=== PATIENT | female | born 1965 | race Caucasian/White ===

== ENCOUNTER 2021-10-16 16:16 | Inpatient (IN) ==
[2021-10-16 16:39] LABS: BASOPHILS % (AUTO) 0.1 % (0.0-3.0); HEMATOCRIT 42.8 % (37.0-47.0); HEMOGLOBIN 13.8 g/dl (12.0-16.0); IMMATURE GRANULOCYTE # (AUTO) 0.1 (0.0-1.0); IMMATURE GRANULOCYTE % (AUTO) 0.9 % (0.0-5.0); LYMPHOCYTES # (AUTO) 1.9 K/uL (0.60-3.4); LYMPHOCYTES % (AUTO) 14.2 (10.0-50.0); MEAN CORPUSCULAR HEMOGLOBIN 28.6 pg (27.0-31.0); MEAN CORPUSCULAR HGB CONC 32.2 (31.8-35.4); MEAN CORPUSCULAR VOLUME 88.6 fl (81.0-99.0); MONOCYTES # (AUTO) 0.7 K/uL (0.4-2.0); MONOCYTES % (AUTO) 5.4 (0-10); NEUTROPHILS # (AUTO) 10.6 K/ul (2.0-6.9); NEUTROPHILS % (AUTO) 79.4 % (42.2-75.2); PLATELET COUNT 302 10^3/uL (140-440); RDW COEFFICIENT OF VARIATION 14.3 % (11.6-14.8); RED BLOOD COUNT 4.83 10^6/ul (4.20-5.40); WHITE BLOOD COUNT 13.41 K/ul (4.6-10.2)
[2021-10-16 16:43] LABS: ABG O2 HGB 79.9 % (95-100); ABG PH 7.46 (7.35-7.45); BEecf 1.8 (-2.0-3.0); COHb 1.8 (0.5-1.5); HCO3 25.6 (21-28); TCO2 26.7 (19-24); sO2 81.6 % (94-98); tHb 13.5 g/dl (11.7-17.4)
[2021-10-16 16:53] LABS: ALBUMIN 4.49 g/dL (3.5-5.0); ALKALINE PHOSPHATASE 91.7 U/L (38-126); ASPARTATE AMINO TRANSFERASE 147.3 U/L (14-36); BILIRUBIN,TOTAL 0.93 mg/dL (0.2-1.3); BLOOD UREA NITROGEN 15.5 mg/dL (7-17); CALCIUM 9.56 mg/dL (8.4-10.2); CARBON DIOXIDE 27.9 mmol/L (22-30.0); CHLORIDE 96.5 mmol/L (98-107); CREATINE KINASE 1326.1 U/L (30-135); CREATININE 0.76 mg/dL (0.60-1.30); GLUCOSE 241.4 mg/dL (74-106); POTASSIUM 3.37 mmol/L (3.5-5.1); SODIUM 137.1 mmol/L (134.5-145); TOTAL PROTEIN 8.77 g/dL (6.3-8.2)
[2021-10-16 16:58] LABS: PARTIAL THROMBOPLASTIN TIME 24.7 SEC (23.9-40.0); PROTHROMBIN TIME 10.7 SEC (9.3-11.0)
[2021-10-16 16:59] LABS: ALANINE AMINOTRANSFERASE 68.1 U/L (0-35)
[2021-10-16 17:04] LABS: TROPONIN I < 0.012 ng/ml (0.0000-0.120)
[2021-10-16] MEDS ORDERED: SOLU-MEDROL 125 MG IVP ONE (17:06)
[2021-10-16] MEDS ORDERED: ROCEPHIN 1 GM/50 ML D5W 1 GM/50 ML BAG IV STA (17:13)
[2021-10-16] MEDS ORDERED: DUONEB NEB STA (17:18)
[2021-10-16 17:22] LABS: ERYTHROCYTE SEDIMENTATION RATE 68 mm/hr (0-20)
--- NOTE | 2021-10-16 17:23 | DI ---
EXAM: Single view of the chest. History: Short of breath Findings: Heart is enlarged. Bilateral lung infiltrates. No appreciable pleural fluid and no pneum othorax. No acute osseous abnormalities. Severe scoliosis. Impression: Cardiomegaly with bilateral lung infiltrates could represent pulmonary edema and/or pneu monia
[2021-10-16] MEDS ORDERED: LASIX IVP ONE (17:25)
[2021-10-16] MEDS ORDERED: URO-JET MUCOUSMEMB STA (17:28)
[2021-10-16 18:01] LABS: RSV MOLECULAR NEGATIVE BY NAAT (NEGATIVE)
[2021-10-16] MEDS ORDERED: VANCOMYCIN 1 GM in SODIUM CHLORIDE 250 ML IV ONE (18:08)
[2021-10-16 18:33] LABS: ABG O2 HGB 92.7 % (95-100); BEecf 7.3 (-2.0-3.0); COHb 1.6 (0.5-1.5); HCO3 29.7 (21-28); MetHb 1.5 (0-1.5); TCO2 30.7 (19-24); sO2 94.3 % (94-98); tHb 13.4 g/dl (11.7-17.4)
[2021-10-16 18:36] LABS: ABG PH 7.55 (7.35-7.45)
[2021-10-16] MEDS ORDERED: ATIVAN IVP ONE (18:57)
--- NOTE | 2021-10-16 18:57 | ED.PDOC ---
General ED Provider: Dr. EDD TANNER Chief Complaint: Respiratory Complaint Stated Complaint: severe SOB and chest congestion; onset for past 5 days ; states dx with COVID 9days to 2 weeks At [facility], [place], [facility]ated [facility]. did not receive tx Time Seen by Provider: 10/16/21 16:27 Mode of Arrival: Walk-In Information Source: Patient Exam Limitations: No limitations Primary Care Provider: MULU WEST MD Nursing and Triage Documentation Reviewed and Agree: Yes Does patient meet sepsis criteria?: No System Inflammatory Response Syndrome: Resp >20/Minute Sepsis Protocol: For patient's 13 years and over: Temp is 96.8 and below OR 101 and greater Pulse >90 BPM Resp >20/minute Acutely Altered Mental Status Are patient's symptoms suggestive of a new infection, such as: -Pneumonia -Skin, Soft Tissue -Endocarditis -UTI -Bone, Joint Infection -Implantable Device -Acute Abdominal Infection -Wound Infection -Meningitis -Blood Stream Catheter Infection -Unknown Respiratory Complaint Exam Shortness of Air Complaint/Exam Onset/Duration: 3-4 days Symptoms Are: Worse Timing: Constant Initial Severity: Mild Current Severity: Severe Character: Reports Dyspnea at rest, Dyspnea on exertion and Orthopnea Aggravating: Reports Movement and Deep breaths Alleviating: Reports None Associated Signs and Symptoms: Reports Cough, Wheezing and Nasal congestion Related History: Reports Similar episode History of Healthcare-Acquired Pneumonia: No Cardiac Risk Factors: Reports None Pseudomonas Risk Factors: Reports None Tuberculosis Risk Factors: Reports None Home Oxygen Use: No Recent Stress Test: No Recent Echo/LV Function: No Respiratory Distress: Moderate Stridor Present: No Tracheal Deviation: No Subcutaneous Emphysema: No Accessory Muscle Use: Yes Diminished Breath Sounds: Yes Unable to Speak Full Sentences: Yes Fatigue: Yes Leg Swelling: No Frankie's Sign Present: No Grunting Respirations: No Kussmaul Respirations: No Differential Diagnoses: Airway Obstruction, Pulmonary Edema, COPD Exacerbation, Pneumonia, Pulmonary Embolism and Other (SARS) Quality Indicators For Pneumonia/CAP: Blood Cultures-SCU admit, Antibiotics in 6hr-admit, SpO2 assessed, Vital signs and Mental status assessed Related Surgical History: Reports None Review of Systems Review Of Systems Constitutional: Reports Malaise and Weakness Eyes: Reports No symptoms Ears, Nose, Mouth, Throat: Reports No symptoms Respiratory: Reports Cough, Short of air and Wheezing Cardiac: Reports No symptoms GI: Reports No symptoms : Reports No symptoms Musculoskeletal: Reports No symptoms Skin: Reports No symptoms Neurological: Reports Anxiety Endocrine: Reports No symptoms All Other Systems: Reviewed and Negative [facility] Medical History Arthritis Asthma Chronic obstructive pulmonary disease Diabetes mellitus Elevated cholesterol Gastroesophageal reflux disease Heart disease Family History (Updated 10/16/21 @ 21:06 by JACKIE RAMÍREZ RN) Mother Diabetes Hypertension Cancer Social History Smoking and tobacco status: Former smoker Tobacco: How many years used: 30 Second hand smoke exposure: No Smoking risk assessment performed: No Alcohol intake: never Counseling given: No Counseling provided: none Substance use type: does not use Counseling given: No Counseling provided: none Lizz/bahai: OTHER Special lizz needs: No Agree to transfusion: Yes Adopted: No Foster care: No Household members: children Housing: house Marital status: D Lives independently: No Daycare: no daycare Number of children: 3 Number of grandchildren: 10 Highest education level completed: 8th grade Financial difficulty paying for basics: hard service: No retirement: No Current occupational status: employed Current occupational exposures/hazards: No Do you think of yourself as: straight/heterosexual Current gender identity: male and female Seatbelt use: always Drives intoxicated or rides with intoxicated hazardous materials driver: No Surgical History History of tubal ligation Physical Exam Physical Exam Appearance: Reports Ill-appearing and Obese Ill-appearing: Moderate Pain Distress: Mild Eyes: Reports DANA, EOMI, Conjunctiva clear, Right pupil size and Left pupil size ENT: Reports Ears normal and Oropharynx normal Neck: Supple Respiratory: Reports Airway patent, Breath sounds diminished and Wheezes Cardiovascular: Reports RRR, Pulses normal and No murmur GI/: Reports Soft, Nontender, No masses, Bowel sounds normal and No Organomegaly Musculoskeletal: Reports Normal strength, ROM intact and No edema Skin: Reports Warm and Dry Neurological: Reports Sensation intact, Motor intact, Reflexes intact, Cranial nerves intact, Alert and Oriented Psychiatric: Reports Affect appropriate and Anxious Physician Notification Case Discussed Physician Notified: Sonia -accepts pt Time of Notification: 19:00 Physician Notified: Dr West-PCP Time of Notification: 18:00 Comments: Discussed patient and proposed treatment. Out on vacation now. Back in service end of week, Will particpate in care. Concurs with treatment plan Critical Care Note Critical Care Note Total Critical Care Time (mins): 30 Course Course Hematology/Chemistry: 10/17/21 04:52 10/17/21 04:52 Orders, Labs, Meds: Lab Review 10/16/21 10/16/21 10/16/21 16:35 16:36 16:36 WBC 13.41 H RBC 4.83 Hgb 13.8 Hct 42.8 MCV 88.6 MCH 28.6 MCHC 32.2 RDW Coeff of Barbara 14.3 Plt Count 302 Immature Gran % (Auto) 0.9 Neut % (Auto) 79.4 H Lymph % (Auto) 14.2 [place] % (Auto) 5.4 Eos % (Auto) 0.0 Baso % (Auto) 0.1 Neut # (Auto) 10.6 H Lymph # (Auto) 1.9 [place] # (Auto) 0.7 Eos # (Auto) 0.0 Baso # (Auto) 0.0 Immature Gran # (Auto) 0.1 ESR PT INR APTT Puncture Site Rrad Base Excess 1.8 O2 Saturation 81.6 L ABG pH 7.46 H ABG pCO2 36.0 ABG pO2 43.0 L* ABG HCO3 25.6 ABG Total CO2 26.7 H Jamar Test Os Hemoglobin 1.0 Oxyhemoglobin 79.9 L Carboxyhemoglobin 1.8 H Total Hemoglobin 13.5 O2 Delivery Device Non rebreather Oxygen Liter Flow 15.00 FiO2 % 100.0 Sodium 137.1 Potassium 3.37 L Chloride 96.5 L Carbon Dioxide 27.9 Anion Gap 16.07 BUN 15.5 Creatinine 0.76 Estimated GFR (MDRD) 79.00 BUN/Creatinine Ratio 20.39 Glucose 241.4 H Lactic Acid Calcium 9.56 Magnesium 2.50 H Ferritin Total Bilirubin 0.93 AST 147.3 H ALT 68.1 H Alkaline Phosphatase 91.7 Total Creatine Kinase 1326.1 H CK-MB (CK-2) 2.810 H CK-MB (CK-2) % 0.2100 Troponin I < 0.012 NT-Pro-B Natriuret Pep Total Protein 8.77 H Albumin 4.49 Globulin 4.28 Albumin/Globulin Ratio 1.04 Procalcitonin D-Dimer RSV Antigen 10/16/21 10/16/21 10/16/21 16:36 16:36 16:36 WBC RBC Hgb Hct MCV MCH MCHC RDW Coeff of Barbara Plt Count Immature Gran % (Auto) Neut % (Auto) Lymph % (Auto) [place] % (Auto) Eos % (Auto) Baso % (Auto) Neut # (Auto) Lymph # (Auto) [place] # (Auto) Eos # (Auto) Baso # (Auto) Immature Gran # (Auto) ESR 68 H PT 10.7 INR 1.03 APTT 24.7 Puncture Site Base Excess O2 Saturation ABG pH ABG pCO2 ABG pO2 ABG HCO3 ABG Total CO2 Jamar Test Hemoglobin Oxyhemoglobin Carboxyhemoglobin Total Hemoglobin O2 Delivery Device Oxygen Liter Flow FiO2 % Sodium Potassium Chloride Carbon Dioxide Anion Gap BUN Creatinine Estimated GFR (MDRD) BUN/Creatinine Ratio Glucose Lactic Acid Calcium Magnesium Ferritin Total Bilirubin AST ALT Alkaline Phosphatase Total Creatine Kinase CK-MB (CK-2) CK-MB (CK-2) % Troponin I NT-Pro-B Natriuret Pep Total Protein Albumin Globulin Albumin/Globulin Ratio Procalcitonin D-Dimer 2150.52 H RSV Antigen 10/16/21 10/16/21 10/16/21 16:36 16:36 16:36 WBC RBC Hgb Hct MCV MCH MCHC RDW Coeff of Barbara Plt Count Immature Gran % (Auto) Neut % (Auto) Lymph % (Auto) [place] % (Auto) Eos % (Auto) Baso % (Auto) Neut # (Auto) Lymph # (Auto) [place] # (Auto) Eos # (Auto) Baso # (Auto) Immature Gran # (Auto) ESR PT INR APTT Puncture Site Base Excess O2 Saturation ABG pH ABG pCO2 ABG pO2 ABG HCO3 ABG Total CO2 Jamar Test Hemoglobin Oxyhemoglobin Carboxyhemoglobin Total Hemoglobin O2 Delivery Device Oxygen Liter Flow FiO2 % Sodium Potassium Chloride Carbon Dioxide Anion Gap BUN Creatinine Estimated GFR (MDRD) BUN/Creatinine Ratio Glucose Lactic Acid 2.78 H Calcium Magnesium Ferritin Total Bilirubin AST ALT Alkaline Phosphatase Total Creatine Kinase CK-MB (CK-2) CK-MB (CK-2) % Troponin I NT-Pro-B Natriuret Pep 155.000 H Total Protein Albumin Globulin Albumin/Globulin Ratio Procalcitonin 0.21 H D-Dimer RSV Antigen 10/16/21 10/16/21 10/16/21 16:36 16:36 17:40 WBC RBC Hgb Hct MCV MCH MCHC RDW Coeff of Barbara Plt Count Immature Gran % (Auto) Neut % (Auto) Lymph % (Auto) [place] % (Auto) Eos % (Auto) Baso % (Auto) Neut # (Auto) Lymph # (Auto) [place] # (Auto) Eos # (Auto) Baso # (Auto) Immature Gran # (Auto) ESR PT INR APTT Puncture Site Base Excess O2 Saturation ABG pH ABG pCO2 ABG pO2 ABG HCO3 ABG Total CO2 Jamar Test Hemoglobin Oxyhemoglobin Carboxyhemoglobin Total Hemoglobin O2 Delivery Device Oxygen Liter Flow FiO2 % Sodium Potassium Chloride Carbon Dioxide Anion Gap BUN Creatinine Estimated GFR (MDRD) BUN/Creatinine Ratio Glucose Lactic Acid Calcium Magnesium Ferritin 1100.00 H Total Bilirubin AST ALT Alkaline Phosphatase Total Creatine Kinase CK-MB (CK-2) CK-MB (CK-2) % Troponin I NT-Pro-B Natriuret Pep Total Protein Albumin Globulin Albumin/Globulin Ratio Procalcitonin D-Dimer 2063.12 H RSV Antigen Negative by naat 10/16/21 18:25 WBC RBC Hgb Hct MCV MCH MCHC RDW Coeff of Barbara Plt Count Immature Gran % (Auto) Neut % (Auto) Lymph % (Auto) [place] % (Auto) Eos % (Auto) Baso % (Auto) Neut # (Auto) Lymph # (Auto) [place] # (Auto) Eos # (Auto) Baso # (Auto) Immature Gran # (Auto) ESR PT INR APTT Puncture Site Rrad Base Excess 7.3 H O2 Saturation 94.3 ABG pH 7.55 H* ABG pCO2 34.0 L ABG pO2 62.0 L ABG HCO3 29.7 H ABG Total CO2 30.7 H Jamar Test Pos Hemoglobin 1.5 Oxyhemoglobin 92.7 L Carboxyhemoglobin 1.6 H Total Hemoglobin 13.4 O2 Delivery Device Bipap Oxygen Liter Flow FiO2 % 100.0 Sodium Potassium Chloride Carbon Dioxide Anion Gap BUN Creatinine Estimated GFR (MDRD) BUN/Creatinine Ratio Glucose Lactic Acid Calcium Magnesium Ferritin Total Bilirubin AST ALT Alkaline Phosphatase Total Creatine Kinase CK-MB (CK-2) CK-MB (CK-2) % Troponin I NT-Pro-B Natriuret Pep Total Protein Albumin Globulin Albumin/Globulin Ratio Procalcitonin D-Dimer RSV Antigen Orders Category Date Time Status ADMIT PATIENT INPATIENT .TO SCU (MONITORED BED) ADMISSION 10/16/21 19:36 Active ABG DRAW REQUEST DAILY@0600 CARDIO 10/17/21 06:00 Completed ABG DRAW REQUEST DAILY@0600 CARDIO 10/18/21 06:00 Ordered ABG DRAW REQUEST DAILY@0600 CARDIO 10/19/21 06:00 Ordered ABG DRAW REQUEST DAILY@0600 CARDIO 10/20/21 06:00 Ordered ABG DRAW REQUEST Stat CARDIO 10/16/21 16:27 Completed ABG DRAW REQUEST Stat CARDIO 10/16/21 18:17 Completed BIPAP Routine CARDIO 10/16/21 18:01 Active EKG-(ED ONLY) Stat CARDIO 10/16/21 16:28 Completed INCENTIVE SPIROMETRY Routine CARDIO 10/16/21 19:39 Active NEBULIZER TREATMENT Routine CARDIO 10/16/21 19:42 Active OXYGEN Routine CARDIO 10/16/21 16:28 Active ACTIVITY .BR with BRP CARE 10/16/21 19:41 Active BLOOD GLUCOSE MONITORING (MED/SURG) 0630,1100,1700,2100 CARE 10/16/21 19:42 Active CATHETER INSERTION AND CARE Q8HR CARE 10/16/21 19:41 Active CONTINUOUS PULSE OX (NURSING) PULSEOX CARE 10/16/21 19:39 Active INTAKE & OUTPUT Q8HR CARE 10/16/21 19:41 Active REMINDER: Ask MD to d/c evangelista DAILY CARE 10/16/21 19:42 Active TELEMETRY MONITORING TELE CARE 10/16/21 19:37 Active TELEMETRY MONITORING TELE CARE 10/16/21 19:39 Completed VITAL SIGNS Q4HR CARE 10/16/21 19:41 Active Evangelista [ED CATHETER INSERTION AND CARE] .ONCE EMERGENCY 10/16/21 17:28 Active IV [ED IV/MEDIPORT/POWERPORT] .ONCE EMERGENCY 10/16/21 17:11 Active ABG COOX DAILY@0600 LAB 10/17/21 04:25 Completed ABG COOX DAILY@0600 LAB 10/18/21 06:00 Ordered ABG COOX DAILY@0600 LAB 10/19/21 06:00 Ordered ABG COOX DAILY@0600 LAB 10/20/21 06:00 Ordered ABG COOX Stat LAB 10/16/21 16:35 Completed ABG COOX Stat LAB 10/16/21 18:25 Completed BLOOD CULTURE (ED ONLY) Stat LAB 10/16/21 16:36 Received BNP [NT-PROBNP] Stat LAB 10/16/21 16:36 Completed CBC W/ AUTO DIFF Stat LAB 10/16/21 16:36 Completed CMP [COMPREHENSIVE METABOLIC PANEL] Stat LAB 10/16/21 16:36 Completed CREATINE KINASE Stat LAB 10/16/21 16:36 Completed D-DIMER Routine LAB 10/16/21 16:36 Completed D-DIMER Stat LAB 10/16/21 16:36 Completed ESR Stat LAB 10/16/21 16:36 Completed FERRITIN Routine LAB 10/16/21 16:36 Completed LACTIC ACID Stat LAB 10/16/21 16:36 Completed MAGNESIUM Stat LAB 10/16/21 16:36 Completed PARTIAL THROMBOPLASTIN TIME Stat LAB 10/16/21 16:36 Completed PROCALCITONIN Stat LAB 10/16/21 16:36 Completed PT WITH INR Stat LAB 10/16/21 16:36 Completed RAPID STREP SCREEN [MOLECULAR GROUP A STREP] Stat LAB 10/16/21 17:40 Completed RSV Stat LAB 10/16/21 17:40 Completed TROPONIN I DAILY@0600 LAB 10/18/21 06:00 Ordered TROPONIN I Stat LAB 10/16/21 16:36 Completed 0.9 % Sodium Chloride [Saline Flush] MEDS 10/16/21 17:11 Active 1 syr IVF PRN PRN Acetaminophen [Tylenol] MEDS 10/16/21 19:41 Active 650 mg PO Q4H PRN Ceftriaxone/D5w 1 gm Premix [Rocephin 1 gm/50 ml D5w] MEDS 10/17/21 09:00 Active 1 gm in 50 ml IV DAILY Ceftriaxone/D5w 1 gm Premix [Rocephin 1 gm/50 ml D5w] MEDS 10/16/21 17:13 Discontinued 1 gm in 50 ml IV ONCE Enoxaparin Sodium [Lovenox] MEDS 10/17/21 09:00 Active 40 mg SUBCUT DAILY Furosemide [Lasix] MEDS 10/16/21 17:25 Discontinued 40 mg IVP ONCE ONE Ipratropium/Albuterol Neb [Duoneb] MEDS 10/16/21 17:18 Discontinued 3 ml NEB ONCE STA Ipratropium/Albuterol Neb [Duoneb] MEDS 10/16/21 20:00 Active 3 ml NEB RTQID Lorazepam [Ativan] MEDS 10/16/21 18:57 Discontinued 0.5 mg IVP ONCE ONE Methylprednisolone Sod Succ/Pf [Solu-Medrol 125 mg] MEDS 10/16/21 17:06 Discontinued 125 mg IVP ONCE ONE Methylprednisolone Sod Succ/Pf [Solu-Medrol 125 mg] MEDS 10/16/21 21:00 Active 125 mg IVP Q8HR Potassium Chloride in 0.9%NaCl [Sodium Chloride 0.9%- MEDS 10/16/21 20:00 Active KCl 20 Meq] 1,000 ml IV 70 mls/hr Vancomycin 1 gm MEDS 10/16/21 18:08 Discontinued 0.9 % Sodium Chloride [Sodium Chloride] 250 ml IV ONCE Vancomycin 1 gm MEDS 10/17/21 09:00 Active 0.9 % Sodium Chloride [Sodium Chloride] 250 ml IV Q12HR RESUSCITATION STATUS Routine OTHERS 10/16/21 19:41 Ordered CHEST, 1V AP ONLY Routine RADS 10/17/21 07:00 Completed CHEST, 1V AP ONLY Stat RADS 10/16/21 16:28 Completed Medications Generic Name Dose Route Start Last Admin Trade Name Freq PRN Reason Stop Dose Admin Acetaminophen 650 mg 10/16/21 19:41 Acetaminophen 325 Mg Tablet PO Q4H PRN Severe Pain Albuterol/Ipratropium 3 ml 10/16/21 20:00 10/17/21 10:05 Ipratropium/Albuterol Vial.Neb NEB 3 ml RTQID SVITLANA Administration Amitriptyline HCl 25 mg 10/16/21 21:30 10/16/21 23:52 Amitriptyline Hcl 25 Mg Tablet PO Not Given BEDTIME SVITLANA Atorvastatin Calcium 20 mg 10/16/21 21:30 10/16/21 23:53 Atorvastatin Calcium 20 Mg Tablet PO Not Given BEDTIME SVITLANA Budesonide/Formoterol Fumarate 2 puff 10/17/21 06:00 10/17/21 05:30 Budesonide/Formoterol Fumarate 80/4.5 Mcg Hfa.Aer.Ad IH 2 puff RTBID SVITLANA Administration Citalopram Hydrobromide 20 mg 10/16/21 21:30 10/17/21 09:36 Citalopram Hydrobromide 20 Mg Tablet PO 20 mg DAILY SVITLANA Administration Enoxaparin Sodium 40 mg 10/17/21 09:00 10/17/21 09:38 Enoxaparin Sodium 40 Mg/0.4 Ml Syr SUBCUT 40 mg DAILY SVITLANA Administration Fenofibrate 160 mg 10/16/21 21:30 10/16/21 23:53 Fenofibrate 160 Mg Tablet PO Not Given BEDTIME SVITLANA Gabapentin 600 mg 10/17/21 09:00 10/17/21 09:36 Gabapentin 300 Mg Capsule PO 600 mg TID SVITLANA Administration Potassium Chloride/Sodium Chloride 1,000 mls @ 70 mls/hr 10/16/21 20:00 10/17/21 10:28 Sodium Chloride 0.9%-Kcl 20 Meq IV 70 mls/hr .[id number] SVITLANA Administration CEFTRIAXONE/D5W 1 GM PREMIX 1 gm in 50 mls @ 75 mls/hr 10/17/21 09:00 10/17/21 09:36 Rocephin 1 Gm/50 Ml D5w IV 10/20/21 08:59 75 mls/hr DAILY SVITLANA Administration Vancomycin HCl 1 gm/ Sodium 250 mls @ 125 mls/hr 10/17/21 09:00 10/17/21 10:30 Chloride IV 10/20/21 08:59 125 mls/hr Q12HR SVITLANA Administration REMDESIVIR SOLUTION 100 mg/ 270 mls @ 270 mls/hr 10/18/21 12:00 Sodium Chloride IV 10/21/21 15:00 DAILY@1200 SVITLANA REMDESIVIR SOLUTION 200 mg/ 290 mls @ 145 mls/hr 10/17/21 12:00 Sodium Chloride IV 10/17/21 13:59 ONCE ONE Insulin Human Regular 0 unit 10/17/21 06:33 Insulin Regular, Human 100 Unit/Ml (3ml) Vial SUBCUT PRN PRN Hyperglycemia Protocol Levothyroxine Sodium 50 mcg 10/17/21 21:00 Levothyroxine Sodium 50 Mcg Tablet PO 10/17/21 21:01 ONCE ONE Metformin HCl 1,000 mg 10/17/21 06:30 10/17/21 05:35 Metformin Hcl 500 Mg Tablet PO Not Given BIDAC SVITLANA Methylprednisolone Sodium Succinate 125 mg 10/16/21 21:00 10/17/21 05:26 Methylprednisolone Sod Succ/Pf 125 Mg/2 Ml Vial IVP 125 mg Q8HR SVITLANA Administration Sodium Chloride 1 syr 10/16/21 17:11 0.9% Sodium Chloride 10 Ml Disp.Syrin IVF PRN PRN To flush IV Tizanidine HCl 4 mg 10/16/21 21:24 Tizanidine Hcl 4 Mg Tablet PO TID PRN Spasms Discontinued Medications Generic Name Dose Route Start Last Admin Trade Name Jasbirq PRN Reason Stop Dose Admin Albuterol/Ipratropium 3 ml 10/16/21 17:18 10/16/21 17:41 Ipratropium/Albuterol Vial.Neb NEB 10/16/21 17:19 3 ml ONCE STA Administration Furosemide 40 mg 10/16/21 17:25 10/16/21 17:30 Furosemide Inj 40 Mg/4 Ml Vial IVP 10/16/21 17:26 40 mg ONCE ONE Administration CEFTRIAXONE/D5W 1 GM PREMIX 1 gm in 50 mls @ 75 mls/hr 10/16/21 17:13 10/16/21 17:30 Rocephin 1 Gm/50 Ml D5w IV 10/16/21 17:52 75 mls/hr ONCE STA Administration Vancomycin HCl 1 gm/ Sodium 250 mls @ 250 mls/hr 10/16/21 18:08 10/16/21 18:38 Chloride IV 10/16/21 19:07 250 mls/hr ONCE ONE Administration REMDESIVIR SOLUTION 200 mg/ 290 mls @ 145 mls/hr 10/16/21 19:57 10/16/21 21:46 Sodium Chloride IV 10/16/21 21:56 Not Given ONCE ONE REMDESIVIR SOLUTION 200 mg/ 290 mls @ 145 mls/hr 10/17/21 09:00 Sodium Chloride IV 10/17/21 10:59 ONCE ONE Lorazepam 0.5 mg 10/16/21 18:57 10/16/21 19:19 Lorazepam Inj 2 Mg/Ml Vial IVP 10/16/21 18:58 0.5 mg ONCE ONE Administration Methylprednisolone Sodium Succinate 125 mg 10/16/21 17:06 10/16/21 17:13 Methylprednisolone Sod Succ/Pf 125 Mg/2 Ml Vial IVP 10/16/21 17:07 125 mg ONCE ONE Administration Vital Signs: Temp Pulse Resp BP Pulse Ox 10/16/21 17:15 97 10/16/21 16:38 97.1 F L 112 H 35 H 150/96 H 84 L Discharge Plan Discharge Patient Disposition: ADMITTED INPATIENT Discharge Problem: Acute respiratory failure with hypoxia, Acute exacerbation of chronic obstructive pulmonary disease, COVID-19 ED Provider: EDD TANNER Condition: Serious Physician Progress Note: Worked closely with RT to implement BI PAP, monitor REspiratory status and review lab. BY using bipap avertd need to intubate and place pt on ventilator []
[2021-10-16] MEDS ORDERED: TYLENOL PO PRN (19:41)
[2021-10-16] MEDS ORDERED: VEKLURY 200 MG in SODIUM CHLORIDE 250 ML IV ONE (19:57)
[2021-10-16 20:52] VITALS: BMI 42.2
[2021-10-16] MEDS: DUONEB NEB SCH (21:15)
[2021-10-16] MEDS ORDERED: ZANAFLEX PO PRN (21:24)
[2021-10-16] MEDS: SOLU-MEDROL 125 MG IVP SCH (21:28)
[2021-10-16] MEDS: SODIUM CHLORIDE 0.9%-KCL 20 MEQ 1,000 ML IV SCH (21:38)
[2021-10-16] MEDS: CELEXA PO SCH (23:32)
[2021-10-16] MEDS: ELAVIL PO SCH (23:52)
[2021-10-16] MEDS: LIPITOR PO SCH (23:53)
[2021-10-16] MEDS: TRIGLIDE PO SCH (23:53)
[2021-10-17 04:50] LABS: BEecf 4.9 (-2.0-3.0); COHb 2.1 (0.5-1.5); HCO3 29.7 (21-28); MetHb 0.8 (0-1.5); TCO2 31.2 (19-24)
[2021-10-17] MEDS: DUONEB NEB SCH ×4 (04:50→19:45)
[2021-10-17 04:51] LABS: ABG O2 HGB 89.5 % (95-100); sO2 91.7 % (94-98); tHb 19.7 g/dl (11.7-17.4)
[2021-10-17] MEDS: SOLU-MEDROL 125 MG IVP SCH ×3 (05:26→20:37)
[2021-10-17] MEDS: GLUCOPHAGE PO SCH ×3 (05:30→16:00)
[2021-10-17 05:41] LABS: BASOPHILS % (AUTO) 0.1 % (0.0-3.0); HEMATOCRIT 38.7 % (37.0-47.0); HEMOGLOBIN 12.6 g/dl (12.0-16.0); IMMATURE GRANULOCYTE # (AUTO) 0.1 (0.0-1.0); IMMATURE GRANULOCYTE % (AUTO) 1.1 % (0.0-5.0); LYMPHOCYTES # (AUTO) 0.7 K/uL (0.60-3.4); LYMPHOCYTES % (AUTO) 7.5 (10.0-50.0); MEAN CORPUSCULAR HGB CONC 32.6 (31.8-35.4); MONOCYTES # (AUTO) 0.3 K/uL (0.4-2.0); MONOCYTES % (AUTO) 3.1 (0-10); NEUTROPHILS # (AUTO) 7.9 K/ul (2.0-6.9); NEUTROPHILS % (AUTO) 88.2 % (42.2-75.2); PLATELET COUNT 254 10^3/uL (140-440); RDW COEFFICIENT OF VARIATION 14.4 % (11.6-14.8); RED BLOOD COUNT 4.35 10^6/ul (4.20-5.40); WHITE BLOOD COUNT 8.96 K/ul (4.6-10.2)
[2021-10-17 05:53] LABS: ALANINE AMINOTRANSFERASE 64.8 U/L (0-35); ALBUMIN 3.92 g/dL (3.5-5.0); ASPARTATE AMINO TRANSFERASE 107.3 U/L (14-36); BILIRUBIN,TOTAL 0.68 mg/dL (0.2-1.3); CALCIUM 8.84 mg/dL (8.4-10.2); CREATININE 0.78 mg/dL (0.60-1.30); GLUCOSE 267.3 mg/dL (74-106); POTASSIUM 3.49 mmol/L (3.5-5.1); SODIUM 140.6 mmol/L (134.5-145); TOTAL PROTEIN 7.81 g/dL (6.3-8.2)
[2021-10-17] MEDS ORDERED: SYMBICORT 80-4.5 MCG INHALER IH SCH (06:00)
[2021-10-17 06:05] LABS: TROPONIN I < 0.012 ng/ml (0.0000-0.120)
--- NOTE | 2021-10-17 08:30 | PCM.PROG ---
Date Seen by Provider: 10/17/21 Time Seen by Provider: 07:40 Subjective: Pt is feeling somewhat better but still with respiratory distress. O2 sat is 88-90% on BiPap. Denies any F/C/N/V/CP/AP. ABG slightly improved this morning. Objective: Vitals: T=97.3 F, P=74, R=22, HK=762/80, SPO2=92 HEENT: PERRL Neck: supple Lungs: Overall decreaased BS with exp wheezes. CVS: RRR Abdomen: soft Neurological: A+Ox3. no focal defecits Lab/Tests/Diagnostic Imaging: AB.4, CO2 42 O2 63. WBC 11.5. Glucose 267. (1) Acute exacerbation of chronic obstructive pulmonary disease: Status: Acute Code(s): J44.1 - Chronic obstructive pulmonary disease with (acute) exacerbation SNOMED Code(s): 673314721 (2) COVID-19: Status: Acute Code(s): U07.1 - COVID-19 SNOMED Code(s): 756638114 Plan: 1. COVID 19/COPD: Pt will continue on BiPap. On Ceftriaxone and Vancomycin but will send sputum culture to try and better identify needed antibiotics. Continue steroids and breathing treatments. 2. Diabetes: Continue sliding scale insulin
[2021-10-17] MEDS ORDERED: VEKLURY 200 MG in SODIUM CHLORIDE 250 ML IV ONE ×2 (09:00→12:00)
[2021-10-17] MEDS: CELEXA PO SCH (09:36)
[2021-10-17] MEDS: NEURONTIN PO SCH ×3 (09:36→20:49)
[2021-10-17] MEDS: ROCEPHIN 1 GM/50 ML D5W 1 GM/50 ML BAG IV SCH (09:36)
[2021-10-17] MEDS: LOVENOX SUBCUT SCH (09:38)
--- NOTE | 2021-10-17 09:51 | DI ---
EXAM: Chest one view HISTORY: COVID-19 positive COMPARISON: 10/16/2021 TECHNIQUE: Single view of the chest was performed FINDINGS: Heart is enlarged. Mediastinal contour unchanged. No visible pneumothorax. No large ple ural effusion. Multifocal bilateral interstitial and alveolar opacity, similar to prior examination. IMPRESSION: Multifocal bilateral pneumonia, similar to prior examination. Component of edema not ex cluded.
[2021-10-17 10:05] LABS: PROTHROMBIN TIME 10.7 SEC (9.3-11.0)
[2021-10-17] MEDS: SODIUM CHLORIDE 0.9%-KCL 20 MEQ 1,000 ML IV SCH (10:28)
[2021-10-17] MEDS: VANCOMYCIN 1 GM in SODIUM CHLORIDE 250 ML IV SCH ×2 (10:30→20:50)
[2021-10-17] MEDS: HUMULIN R SUBCUT PRN ×3 (12:07→21:02)
[2021-10-17] MEDS: TRIGLIDE PO SCH (20:50)
[2021-10-17] MEDS: SYMBICORT 80-4.5 MCG INHALER IH SCH (20:50)
[2021-10-17] MEDS: LIPITOR PO SCH (20:50)
[2021-10-17] MEDS: ELAVIL PO SCH (20:50)
[2021-10-17] MEDS ORDERED: SYNTHROID PO ONE (21:00)
[2021-10-18] MEDS: DUONEB NEB SCH ×4 (04:55→19:40)
[2021-10-18 05:39] LABS: ABG PH 7.44 (7.35-7.45)
[2021-10-18 05:40] LABS: BEecf 5.7 (-2.0-3.0); COHb 2.2 (0.5-1.5); HCO3 29.9 (21-28); MetHb 0.9 (0-1.5)
[2021-10-18 05:41] LABS: TCO2 31.3 (19-24); sO2 88.3 % (94-98); tHb 12.7 g/dl (11.7-17.4)
[2021-10-18] MEDS: SOLU-MEDROL 125 MG IVP SCH ×3 (05:45→20:38)
[2021-10-18] MEDS: GLUCOPHAGE PO SCH ×2 (05:46→17:21)
[2021-10-18] MEDS: HUMULIN R SUBCUT PRN ×4 (05:46→20:38)
[2021-10-18] MEDS: SODIUM CHLORIDE 0.9%-KCL 20 MEQ 1,000 ML IV SCH (05:58)
[2021-10-18 06:16] LABS: BASOPHILS % (AUTO) 0.1 % (0.0-3.0); HEMOGLOBIN 12.3 g/dl (12.0-16.0); IMMATURE GRANULOCYTE # (AUTO) 0.2 (0.0-1.0); IMMATURE GRANULOCYTE % (AUTO) 1.4 % (0.0-5.0); LYMPHOCYTES # (AUTO) 0.7 K/uL (0.60-3.4); LYMPHOCYTES % (AUTO) 4.4 (10.0-50.0); MEAN CORPUSCULAR HEMOGLOBIN 29.1 pg (27.0-31.0); MEAN CORPUSCULAR HGB CONC 32.4 (31.8-35.4); MEAN CORPUSCULAR VOLUME 89.8 fl (81.0-99.0); MONOCYTES # (AUTO) 0.6 K/uL (0.4-2.0); MONOCYTES % (AUTO) 3.8 (0-10); NEUTROPHILS # (AUTO) 13.9 K/ul (2.0-6.9); NEUTROPHILS % (AUTO) 90.3 % (42.2-75.2); PLATELET COUNT 289 10^3/uL (140-440); RDW COEFFICIENT OF VARIATION 14.8 % (11.6-14.8); RED BLOOD COUNT 4.23 10^6/ul (4.20-5.40); WHITE BLOOD COUNT 15.36 K/ul (4.6-10.2)
[2021-10-18 06:33] LABS: PROTHROMBIN TIME 10.5 SEC (9.3-11.0)
[2021-10-18 06:37] LABS: ALANINE AMINOTRANSFERASE 56.4 U/L (0-35); ALBUMIN 3.65 g/dL (3.5-5.0); ALKALINE PHOSPHATASE 101.4 U/L (38-126); ASPARTATE AMINO TRANSFERASE 78.9 U/L (14-36); BILIRUBIN,TOTAL 0.54 mg/dL (0.2-1.3); BLOOD UREA NITROGEN 25.6 mg/dL (7-17); CALCIUM 8.67 mg/dL (8.4-10.2); CARBON DIOXIDE 30.4 mmol/L (22-30.0); CHLORIDE 105.5 mmol/L (98-107); CREATININE 0.81 mg/dL (0.60-1.30); GLUCOSE 261.6 mg/dL (74-106); POTASSIUM 4.04 mmol/L (3.5-5.1); SODIUM 141.9 mmol/L (134.5-145); TOTAL PROTEIN 7.39 g/dL (6.3-8.2)
[2021-10-18] MEDS: LOVENOX SUBCUT SCH (09:33)
[2021-10-18] MEDS: ROCEPHIN 1 GM/50 ML D5W 1 GM/50 ML BAG IV SCH (09:33)
[2021-10-18] MEDS: CELEXA PO SCH (09:33)
[2021-10-18] MEDS: NEURONTIN PO SCH ×3 (09:33→20:39)
[2021-10-18] MEDS: SYMBICORT 80-4.5 MCG INHALER IH SCH ×2 (09:33→20:47)
[2021-10-18] MEDS: VANCOMYCIN 1 GM in SODIUM CHLORIDE 250 ML IV SCH ×2 (10:27→20:39)
[2021-10-18] MEDS: VEKLURY 100 MG in SODIUM CHLORIDE 250 ML IV SCH (14:50)
--- NOTE | 2021-10-18 20:05 | PCM.PROG ---
Date Seen by Provider: 10/18/21 Time Seen by Provider: 10:30 Subjective: Feelng better, remains on BIpap with oxygen level improved. Overall feeling much better Objective: Vitals: T=97.2 F, P=86, R=26, ZQ=151/81, SPO2=92 HEENT: Clear Neck: soft non tender. neg JVD Lungs: CTA CVS: normal Abdomen: soft non tender Extremities: neg cyanosis Neurological: CN II -XII, motor sensory and cerebellar wnl Skin: [] Lab/Tests/Diagnostic Imaging: on chart (1) Acute exacerbation of chronic obstructive pulmonary disease: Status: Acute Code(s): J44.1 - Chronic obstructive pulmonary disease with (acute) exacerbation SNOMED Code(s): 486574358 (2) COVID-19: Status: Acute Code(s): U07.1 - COVID-19 SNOMED Code(s): 644944680 Plan: Continue respiratrory suppport with BI pap and other threrapy
[2021-10-18] MEDS: ELAVIL PO SCH (20:39)
[2021-10-18] MEDS: TRIGLIDE PO SCH (20:39)
[2021-10-18] MEDS: LIPITOR PO SCH (20:39)
[2021-10-19] MEDS: DUONEB NEB SCH ×4 (04:48→20:00)
[2021-10-19 04:59] LABS: ABG O2 HGB 92.5 % (95-100); ABG PH 7.43 (7.35-7.45); BEecf 8.9 (-2.0-3.0); COHb 2.4 (0.5-1.5); HCO3 33.2 (21-28); MetHb 0.5 (0-1.5); TCO2 34.7 (19-24); sO2 93.5 % (94-98); tHb 10.5 g/dl (11.7-17.4)
[2021-10-19] MEDS: SOLU-MEDROL 125 MG IVP SCH ×2 (05:36→14:42)
[2021-10-19] MEDS: SODIUM CHLORIDE 0.9%-KCL 20 MEQ 1,000 ML IV SCH ×2 (05:37→05:59)
[2021-10-19 05:51] LABS: BASOPHILS % (AUTO) 0.2 % (0.0-3.0); HEMATOCRIT 37.1 % (37.0-47.0); HEMOGLOBIN 11.6 g/dl (12.0-16.0); IMMATURE GRANULOCYTE # (AUTO) 0.4 (0.0-1.0); LYMPHOCYTES # (AUTO) 0.4 K/uL (0.60-3.4); LYMPHOCYTES % (AUTO) 3.2 (10.0-50.0); MEAN CORPUSCULAR HEMOGLOBIN 29.1 pg (27.0-31.0); MEAN CORPUSCULAR HGB CONC 31.3 (31.8-35.4); MEAN CORPUSCULAR VOLUME 93.2 fl (81.0-99.0); MONOCYTES # (AUTO) 0.5 K/uL (0.4-2.0); MONOCYTES % (AUTO) 3.8 (0-10); NEUTROPHILS # (AUTO) 12.4 K/ul (2.0-6.9); NEUTROPHILS % (AUTO) 89.8 % (42.2-75.2); PLATELET COUNT 193 10^3/uL (140-440); RDW COEFFICIENT OF VARIATION 15.4 % (11.6-14.8); RED BLOOD COUNT 3.98 10^6/ul (4.20-5.40); WHITE BLOOD COUNT 13.82 K/ul (4.6-10.2)
[2021-10-19] MEDS: GLUCOPHAGE PO SCH ×2 (05:59→16:03)
[2021-10-19 06:03] LABS: ALANINE AMINOTRANSFERASE 41.4 U/L (0-35); ALBUMIN 3.42 g/dL (3.5-5.0); ALKALINE PHOSPHATASE 142.5 U/L (38-126); ASPARTATE AMINO TRANSFERASE 70.8 U/L (14-36); BILIRUBIN,TOTAL 0.59 mg/dL (0.2-1.3); BLOOD UREA NITROGEN 24.8 mg/dL (7-17); CALCIUM 8.61 mg/dL (8.4-10.2); CHLORIDE 108.6 mmol/L (98-107); CREATININE 0.57 mg/dL (0.60-1.30); GLUCOSE 210.5 mg/dL (74-106); POTASSIUM 4.35 mmol/L (3.5-5.1); TOTAL PROTEIN 6.88 g/dL (6.3-8.2)
[2021-10-19 06:24] LABS: PROTHROMBIN TIME 11.4 SEC (9.3-11.0)
[2021-10-19] MEDS: HUMULIN R SUBCUT PRN ×4 (06:34→20:37)
--- NOTE | 2021-10-19 08:26 | PCM.PROG ---
Date Seen by Provider: 10/19/21 Time Seen by Provider: 07:50 Subjective: Pt still with significant SOB. Attempted to week patient from BiPap without success. She denies any F/C/N/V/CP/AP. Objective: Vitals: T=97.0 F, P=90, R=20, DC=506/89, SPO2=90 HEENT: PERRL Neck: supple Lungs: wheezes diffusely CVS: RRR Abdomen: soft, non tender Neurological: A+O x 3, non focal exam Lab/Tests/Diagnostic Imaging: AB.43, pCO2 50, pO2 67, Glucose 210, Elevated AST/ALT. (1) Acute exacerbation of chronic obstructive pulmonary disease: Status: Acute Code(s): J44.1 - Chronic obstructive pulmonary disease with (acute) exacerbation SNOMED Code(s): 577454078 (2) COVID-19: Status: Acute Code(s): U07.1 - COVID-19 SNOMED Code(s): 542722085 Plan: 1. COVID 19: Pt has received her Sulaiman infusion. Still with respiratory distress. 2. COPD exacerbation: Worsened by Covid 19. Failed attempt to week BiPap so will remain on BiPap today. Will continue with antibiotics, steroid and nebs. Still awaiting a sputum culture to determine needed antibiotics.
[2021-10-19] MEDS: ROCEPHIN 1 GM/50 ML D5W 1 GM/50 ML BAG IV SCH (08:56)
[2021-10-19] MEDS: NEURONTIN PO SCH ×4 (08:56→22:25)
[2021-10-19] MEDS: CELEXA PO SCH (08:56)
[2021-10-19] MEDS: LOVENOX SUBCUT SCH (08:57)
[2021-10-19] MEDS: SYMBICORT 80-4.5 MCG INHALER IH SCH ×3 (09:11→22:26)
[2021-10-19] MEDS: VANCOMYCIN 1 GM in SODIUM CHLORIDE 250 ML IV SCH (10:01)
[2021-10-19] MEDS ORDERED: ZITHROMAX PO SCH (11:00)
[2021-10-19] MEDS: VEKLURY 100 MG in SODIUM CHLORIDE 250 ML IV SCH (12:34)
[2021-10-19 19:24] LABS: ABG O2 HGB 84.8 % (95-100); ABG PH 7.45 (7.35-7.45); BEecf 11.4 (-2.0-3.0); COHb 2.6 (0.5-1.5); HCO3 35.4 (21-28); MetHb 0.5 (0-1.5); sO2 86.8 % (94-98); tHb 12.7 g/dl (11.7-17.4)
[2021-10-19] MEDS: ELAVIL PO SCH ×2 (20:38→22:25)
[2021-10-19] MEDS: TRIGLIDE PO SCH ×2 (20:38→22:26)
[2021-10-19] MEDS: LIPITOR PO SCH ×2 (20:38→22:25)
[2021-10-19 20:46] VITALS: BP 152/101; TEMP 97.4
[2021-10-19] MEDS ORDERED: DIPRIVAN 1,000 MG/100 ML VIAL 1,000 MG/100 ML INFUS..BTL IV ONE (20:48)
[2021-10-19] MEDS ORDERED: AMIDATE IVP ONE (20:49)
[2021-10-19] MEDS ORDERED: ANECTINE ONE (20:49)
[2021-10-19] MEDS ORDERED: NORCURON ONE (21:05)
--- NOTE | 2021-10-19 21:15 | PCM.DC ---
Final Diagnosis: Respiratory Failure Covid 19 infection COPD exacerbation Hypopxia (1) Acute exacerbation of chronic obstructive pulmonary disease: Status: Acute Code(s): J44.1 - Chronic obstructive pulmonary disease with (acute) exacerbation SNOMED Code(s): 907136063 (2) COVID-19: Status: Acute Code(s): U07.1 - COVID-19 SNOMED Code(s): 472815965 Reason for Hospitalization: Pt admitted for respiratory distress and COPD exacerbation secondary to Covid 19. Prognosis/Condition at Discharge: Guarded Medications at Discharge: Ambulatory Orders Medication Instructions Recorded blood sugar diagnostic (Blood #100 ea 08/15/20 Glucose Test) citalopram 20 mg tablet (Celexa) 20 mg PO QDAY #90 tab 01/17/21 metformin 1,000 mg tablet 1,000 mg PO BID 90 Days #180 tab 01/17/21 lancets #100 ea 03/22/21 solifenacin 5 mg tablet 5 mg PO ONCE #90 tab 04/18/21 albuterol sulfate 90 mcg/actuation 2 puff INHALATION Q4-6H PRN #8.5 g 04/19/21 aerosol inhaler levothyroxine 50 mcg tablet See Rx Instructions .ROUTE 05/30/21 .COMPLEX #90 tab gabapentin 300 mg capsule 600 mg PO TID 30 Days #180 tab-cap 07/23/21 amitriptyline 25 mg tablet 25 mg PO QHS #90 tab 08/01/21 atorvastatin 40 mg tablet See Rx Instructions .ROUTE 08/01/21 .COMPLEX #90 tab tizanidine 4 mg tablet (Zanaflex) 4 mg PO TID PRN #180 tab 08/01/21 fenofibrate 160 mg tablet 160 mg PO QDAY #90 tab 09/28/21 budesonide-formoterol HFA 80 2 puff INHALATION BID #3 units 10/03/21 mcg-4.5 mcg/actuation aerosol inhaler (Symbicort) Lab/Diagnostics: Last ABG showed a pH of 7.45 with a pCO2 of 51 and a pO2 of 50. Education Provided to Patient and Family: Pt educated on why intubation and transfer were necessary. Follow-ups: Pt is being transferred to a high level of care. Discharge Disposition: Acute Care Facility Hospital Course: Pt admitted for respiratory distress, Covid 19 and COPD exacerbation. She was placed on BiPap, steroids, ceftriaxone, vancomycin and nebs. Initially she seemed to show some improvement but over the last 12 hours, her condition has worsened. Her pO2 has dropped, her O2 saturation remains in the mid 80s on BiPap and she is now tachypneic. At this point, she needs to be transferred to a higher care facility. I spoke with Dr. Chowdhury at [facility] who accepted the patient in transfer. After discussion, she will be intbated prior to transfer. The ambulance service has a truck that is having mechanical difficulties so she will be transfered by Air. 9:30 PM: After intubation, it has been difficult to increase her O2 saturation. It initially fell to 70% but with suctioning and bagginf, we were able to get it up to around 80-82%. [facility] transport should be here shortly. Intubation note: Pt was given 20 mg of Etomidate and 100mg of succ. Using a Mac 3 and 7.0 ETTube, she was intubated without difficulty. She had good CO2 color change noted post intubation and the tube was secured in place. The Xray showed good positioning of the tube but there was signifcantly worsening infiltrates bilaterally. Critical care time was 45 minutes exclusive of procedures for respiratory compro mise. Plan: 1. Respiratory Failure: Intubate the patient and transfer to higher care. Dr. Chowdhury at [facility] has accepted the patient in transfer.
[2021-10-19 21:28] LABS: ABG O2 HGB 64.9 % (95-100); BEecf 4.8 (-2.0-3.0); COHb 2.2 (0.5-1.5); HCO3 31.5 (21-28); MetHb 0.7 (0-1.5); TCO2 33.6 (19-24); sO2 65.7 % (94-98); tHb 13.4 g/dl (11.7-17.4)
[2021-10-19] MEDS ORDERED: SODIUM CHLORIDE 500 ML IV SCH (21:30)
[2021-10-19 21:31] LABS: ABG PH 7.28 (7.35-7.45)
--- NOTE | 2021-10-19 21:43 | DI ---
EXAM: Single view of the chest. History: Status post intubation. Comparison: Chest radiograph 10/17/2021 Findings: Heart remains enlarged. Worsening severe bilateral lung infiltrates. Endotracheal tube t ip a cyst above the level of the clavicles. Scoliosis. No pneumothorax. Impression: 1. Endotracheal tube placement. No pneumothorax. 2. Worsening severe bilateral lung infiltrates
== END 2021-10-19 22:02 | disposition short-term general hospital (02) | DRG 177 ==
LOC: ED 16:16 → MEDSURG B 19:52
PROVIDERS: ADMIT Emergency Medicine; ATTEND Emergency Medicine
DX: U07.1 COVID-19; Z79.4 Long term (current) use of insulin; E11.9 Type 2 diabetes mellitus without complications; J96.01 Acute respiratory failure with hypoxia; R06.02 Shortness of breath; J44.1 Chronic obstructive pulmonary disease with (acute) exacerbation